=== PATIENT | male | born 1960 | race Caucasian/White ===

== ENCOUNTER 2018-07-19 01:31 | Emergency (ER) | payer OTHER ==
[~2018-07-19] VITALS: Ht 182.9 cm; Wt 117.8 kg
[2018-07-19] MEDS ORDERED: TURM500C4 PO (01:46)
[2018-07-19] MEDS ORDERED: LANS30CA60 PO (01:46)
[2018-07-19] MEDS ORDERED: MULT-224 PO (01:46)
[2018-07-19] MEDS ORDERED: ONDANSETRON 2MG/ML, 2ML IVPush ONE (02:00)
[2018-07-19 02:08] LABS: BASOPHILS # (AUTO) 0.01 x10^3/uL (0-0.1); BASOPHILS % (AUTO) 0 % (0-1); EOSINOPHILS # (AUTO) 0.08 x10^3/uL (0-0.4); EOSINOPHILS % (AUTO) 1 % (1-7); LYMPHOCYTES # (AUTO) 0.83 x10^3/uL (1-3.4); LYMPHOCYTES % (AUTO) 8 % (22-44); MD NO; MEAN CORPUSCULAR HEMOGLOBIN 30.2 pg (27.5-34.5); MEAN CORPUSCULAR HGB CONC 34.5 g/dL (33.2-36.2); MEAN CORPUSCULAR VOLUME 87.5 fL (81-97); MEAN PLATELET VOLUME 8.2 fL (7.4-10.4); MONOCYTES # (AUTO) 0.54 x10^3/uL (0.2-0.8); MONOCYTES % (AUTO) 5 % (2-9); NEUTROPHILS # (AUTO) 8.86 x10^3/uL (1.8-6.8); NEUTROPHILS % (AUTO) 86 % (42-75); PLATELET COUNT 246 x10^3/uL (130-400); RED BLOOD COUNT 5.69 x10^6/uL (4.38-5.82); RED CELL DISTRIBUTION WIDTH 13.3 % (9.4-14.8)
[2018-07-19 02:20] LABS: ALANINE AMINOTRANSFERASE 50 U/L (12-78); ALBUMIN 4.4 g/dL (3.4-5.0); ANION GAP 10 mmol/L (5-15); CALCIUM 9.1 mg/dL (8.5-10.1); CHLORIDE 108 mmol/L (98-107); CREATININE 1.15 mg/dL (0.7-1.3)
[2018-07-19] MEDS ORDERED: ONDANSETRON 2MG/ML, 2ML ONE (02:23)
[2018-07-19] MEDS ORDERED: MORPHINE SULFATE 4 MG/ML, 1ML ONE ×2 (02:24→03:28)
[2018-07-19 02:25] LABS: ALKALINE PHOSPHATASE 83 U/L (45-117); BILIRUBIN,TOTAL 0.7 mg/dL (0.2-1.0); TOTAL PROTEIN 8.2 g/dL (6.4-8.2); TROPONIN I < 0.015 ng/mL (0.000-0.045)
[2018-07-19] MEDS: MORPHINE SULFATE 4 MG/ML, 1ML IVPush PRN ×2 (02:31→03:32)
[2018-07-19 02:51] LABS: MICROSCOPIC INDICATED
[2018-07-19 03:02] LABS: CULTURE INDICATED? NO
[2018-07-19 04:06] VITALS: BP 122/73
== END 2018-07-19 04:37 | disposition home or self-care (01) ==
LOC: ED 04:31
DX: K80.20 Calculus of gallbladder without cholecystitis without obstruction (principal); R10.13 Epigastric pain; K21.9 Gastro-esophageal reflux disease without esophagitis
CPT/HCPCS: 36415; 76700; 80053; 81001; 83690; 84484; 85025; 86677; 93005; 96374; 96375; 96376; 99285; J2405

== ENCOUNTER 2018-09-22 06:55 | Day surgery (SDC) | payer OTHER ==
[~2018-09-22] VITALS: Ht 182.9 cm; Wt 109.4 kg
[2018-09-22 06:54] VITALS: BP 125/80
[~2018-09-22 06:55] MED LIST: LANS30CA60 PO; MULT-224 PO; TRAM50TA2 PO; TURM500C4 PO
[2018-09-22] MEDS ORDERED: LACTATED RINGERS 1,000 ML IV SCH ×2 (06:57→10:14)
[2018-09-22] MEDS ORDERED: BUPIVACAINE/PF-EPI 0.5% 1:200K ONE (07:04)
[2018-09-22] MEDS ORDERED: FENTANYL PF 250 MCG/5ML ONE (08:51)
[2018-09-22] MEDS ORDERED: MIDAZOLAM 1 MG/ML, 2ML ONE (08:51)
[2018-09-22] MEDS ORDERED: DEXAMETHASONE 4 MG/ML, 1ML ONE (08:52)
[2018-09-22] MEDS ORDERED: SUCCINYLCHOLINE 20 MG/ML, 10ML ONE (08:52)
[2018-09-22] MEDS ORDERED: ONDANSETRON 2MG/ML, 2ML ONE (08:52)
[2018-09-22] MEDS ORDERED: PROPOFOL 10 MG/ML, 20ML ONE (08:52)
[2018-09-22] MEDS ORDERED: ROCURONIUM 10MG/ML,5ML ONE (08:52)
[2018-09-22] MEDS ORDERED: GLYCOPYRROLATE 0.2MG/1ML, 5ML ONE (08:53)
[2018-09-22] MEDS ORDERED: CEFAZOLIN 1,000 MG ONE (08:53)
[2018-09-22] MEDS ORDERED: NEOSTIGMINE 1 MG/ML, 10ML ONE (08:53)
[2018-09-22] MEDS ORDERED: MORPHINE SULFATE 4 MG/ML, 1ML IVPush PRN (09:30)
[2018-09-22] MEDS ORDERED: ONDANSETRON ODT 8 MG PO PRN (09:30)
[2018-09-22] MEDS ORDERED: PROMETHAZINE 25 MG/ML, 1ML IV PRN (09:30)
[2018-09-22] MEDS ORDERED: MEPERIDINE/PF 25MG/0.5ML IVPush PRN (09:30)
[2018-09-22] MEDS ORDERED: ACETAMINOPHEN 325 MG TABLET PO PRN (09:30)
[2018-09-22] MEDS ORDERED: HALOPERIDOL 5 MG/ML IV PRN (09:30)
[2018-09-22] MEDS ORDERED: ALBUTEROL SULFATE 2.5 MG/3 ML NPPB PRN (09:30)
[2018-09-22] MEDS ORDERED: EPHEDRINE 50 MG/ML, 1ML IVPush PRN (09:30)
[2018-09-22] MEDS ORDERED: LABETALOL 5MG/ML, 20ML IV PRN (09:30)
[2018-09-22] MEDS ORDERED: PROMETHAZINE 12.5 MG SUPP PR PRN (09:30)
[2018-09-22] MEDS ORDERED: ONDANSETRON 2MG/ML, 2ML IV PRN (09:30)
[2018-09-22] MEDS ORDERED: hydrALAzine 20 MG/ML, 1ML IV PRN (09:30)
[2018-09-22] MEDS ORDERED: FENTANYL PF 100 MCG/2ML IV PRN (09:30)
[2018-09-22] MEDS ORDERED: MIDAZOLAM 1 MG/ML, 2ML IV PRN (09:30)
[2018-09-22] MEDS ORDERED: DIAZEPAM 5 MG/ML, 2ML IVPush PRN (09:30)
[2018-09-22] MEDS ORDERED: HYDROmorphone 2 MG/ML, 1ML IVPush PRN (09:30)
[2018-09-22] MEDS ORDERED: OMNIPAQUE 350 MG/ML, 50 ML BOTTLE ONE (09:47)
[2018-09-22] MEDS ORDERED: THROMBIN 5,000 UNIT VIAL TP ONE (09:49)
[2018-09-22] MEDS ORDERED: HYDROcodone/APAP 5/325 TABLET PO PRN (10:30)
[2018-09-22] MEDS ORDERED: morphine SULFATE 10 MG/ML, 1ML IVPush PRN (10:30)
[2018-09-22] MEDS ORDERED: ONDANSETRON 2MG/ML, 2ML IVPush PRN (10:30)
[2018-09-22] MEDS ORDERED: HYDROmorphone 2 MG/ML, 1ML ONE (10:35)
[2018-09-22] MEDS ORDERED: ACETAMINOPHEN 325 MG TABLET ONE (10:35)
[2018-09-22] MEDS ORDERED: OXYcodone 5 MG/5 ML ORAL.SOL UDC ONE (10:35)
[2018-09-22] MEDS ORDERED: ACETAMINOPHEN 650 MG/20.3 ML UDC ONE (10:35)
[2018-09-22] MEDS: OXYcodone 5 MG/5 ML ORAL.SOL UDC PO PRN ×2 (10:38→12:56)
== END 2018-09-22 12:50 | disposition home or self-care (01) ==
LOC: OUT 06:55 → UNDOADMOB 10:14 → ORIP 10:14 → OUT 12:50
PROVIDERS: ATTEND Thoracic Surgery (Cardiothoracic Vascular Surgery)
DX: K80.10 Calculus of gallbladder with chronic cholecystitis without obstruction (principal)
CPT/HCPCS: 47563; 74300; 88304; J0330; J0690; J1100; J1170; J2250; J2405; J2704; J2710; J3010; J3490; J7120; Q9967